=== PATIENT | female | born 1985 | race Caucasian/White ===

== ENCOUNTER 2017-01-09 22:15 | Emergency (ER) | payer SELFPAY ==
[2017-01-09] MEDS ORDERED: KETOROLAC TROMETHAMINE 60 MG/2 ML VIAL IM ONE (22:47)
[2017-01-09] MEDS ORDERED: ONDANSETRON HCL 4 MG TAB.RAPDIS ONE (22:54)
[2017-01-09] MEDS ORDERED: ONDANSETRON HCL 4 MG TAB.RAPDIS PO ONE (23:13)
[2017-01-09] MEDS ORDERED: LEVOFLOXACIN 500 MG TABLET PO ONE (23:30)
--- NOTE | 2017-01-09 23:36 | ED Physician Documentation ---
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 - HPI Stated Complaint: rt flank pain Chief Complaint: Flank Pain Additional Information: started yesterday, worse today Onset: days ago (1) Duration: sudden-onset Timing: still present Context: denies: out of country travel, bad food, recent trauma Severity: moderate Quality: sharp Front/Back of Body, Lg (Color): 1 - pain 2 - pain Associated Symptoms: nausea Exacerbated by: nothing Relieved by: nothing Further Comments: no - ROS CONST: no problems GI/: none CVS/RESP: none EYES/ENT: none MS/SKIN/LYMPH: none NEURO/PSYCH: none - SOCIAL HX Smoking History: cigarettes Alcohol Use: none Drug Use: none - FAMILY HX Family History: no significant history - PAST HX Past History: none Ischemic Bowel Risk Factors: none Other History: none Surgeries/Procedures: none Immunizations: referred to PCP Medications: none Allergies: NKDA - VITAL SIGNS Vital Signs: Vital Signs Temp Pulse Resp BP Pulse Ox 97.6 F 67 16 134/87 100 01/09/17 22:15 01/09/17 22:15 01/09/17 22:15 01/09/17 22:15 01/09/17 22:15 - REVIEWED ASSESSMENTS Nursing Assessment Reviewed: Yes Vitals Reviewed: Yes Progress - Results/Orders Results/Orders: ua ordered - Progress Progress: pt. given 500 mg Levaquin p.o., Toradol 60 mg IM and 4 mg Zofran p.o. in er with significant improvement Critical Care Note - Critical Care Note Total Time (mins): 0 ED Results Lab/Radiology - Lab Results Lab Results: ua shows uti - Radiology Radiology Impressions: none ordered - Orders Orders: ED Orders Category Date Time Status URINALYSIS Routine Lab 01/09/17 22:47 Ordered Ketorolac Tromethamine [Toradol] Med 01/09/17 22:47 Discontinued 60 mg IM NOW ONE Levofloxacin [Levaquin] Med 01/09/17 23:30 Once 500 mg PO NOW ONE Ondansetron HCl Rapdis [Zofran Odt] Med 01/09/17 22:54 Discontinued 4 mg .ROUTE .STK-MED ONE Ondansetron HCl Rapdis [Zofran Odt] Med 01/09/17 23:13 Discontinued 4 mg PO NOW ONE Abdominal Pain Physical Exam - Physical Exam General Appearance: moderate distress EENT: eye inspection normal, ENT inspection normal, pharynx normal, no signs of dehydration, LEYDI, no nystagmus, TM's nml NECK: normal inspection, thyroid normal, supple RESPIRATORY: no resp distress, chest non-tender, breath sounds normal CVS: reg rate & rhythm, heart sounds normal, equal pulses, no murmur, no gallop , PMI nml ABDOMEN: soft, no organomegaly, normal bowel sounds, no abdominal bruit, no distension, tenderness (right lower quadrant) BACK: CVA tenderness (R) SKIN: warm/dry, normal color EXTREMITIES: non-tender, normal range of motion, no evidence of injury, no edema NEURO: oriented X3, CN's nml as tested, motor nml, sensation nml, mood/affect nml, cognition normal Vital Signs: Vital Signs Temp Pulse Resp BP Pulse Ox 97.6 F 67 16 134/87 100 01/09/17 22:15 01/09/17 22:15 01/09/17 22:15 01/09/17 22:15 01/09/17 22:15 Discharge Clincal Impression: Urinary tract infection Qualifiers: Urinary tract infection type: acute cystitis Hematuria presence: with hematuria Qualified Code(s): N30.01 - Acute cystitis with hematuria Home Medications: Ambulatory Orders NK [NK] 01/09/17 Comments: Discharged in stable condition with scripts for Cipro 500 mg p.o. bid #14, Toradol 10 mg 1 p.o. qid prn pain #10 and Zofran 4 mg 1 p.o. qid prn n/v. Condition: Stable Disposition: 01 HOME, SELF-CARE Decision to Admit: NO Decision Time: 23:30
[2017-01-09 23:53] VITALS: BP 130/82
[2017-01-10 05:36] LABS: APPEARANCE,URINE CLOUDY (CLEAR); COLOR,URINE YELLOW (YELLOW); OCCULT BLOOD,URINE 1+ (NEGATIVE); PH URINE 6.5 (5.0 - 8.0); UROBILINOGEN URINE 0.2 Eu (0.2-1.0)
== END 2017-01-09 23:47 | disposition home or self-care (01) ==
LOC: ED 22:15
DX: N30.01 Acute cystitis with hematuria (principal)
CPT/HCPCS: 81002; 87086; 87186; A9270; J1885; 96372; 99283

== ENCOUNTER 2018-10-18 16:38 | Emergency (ER) | payer SELFPAY ==
[2018-10-18] MEDS ORDERED: cefTRIAXone SODIUM 250 MG INJ IM ONE (17:32)
[2018-10-18] MEDS ORDERED: AZITHROMYCIN 1 GM PACKET PO ONE (17:33)
[2018-10-18 18:28] VITALS: BP 152/74
--- NOTE | 2018-11-15 19:55 | ED Physician Documentation ---
Female Urogenital Problems - HPI Stated Complaint: vaginal bleeding/discharge Chief Complaint: Female Urogenital Problems Further Comments: yes (32 year old female patient presents with complaint of needing STD testing. Patient reports increased vaginal bleeding with clots, started her menses 2 days ago.) - Vaginal Bleeding Compared to Menstrual Periods: heavier, passing clots Contraceptive: none - Associated Symptoms Urinary Symptoms: none - ROS CONST: none GI/: denies: nausea, vomiting CVS/RESP: none EYES/ENT: none NEURO/PSYCH: none MS/SKIN/LYMPH: none - PAST HX Past History: none Allergies/Adverse Reactions: Allergies Allergy/AdvReac Type Severity Reaction Status Date / Time No Known Allergies Allergy Verified 10/18/18 17:04 Home Medications: Ambulatory Orders Medication Instructions Recorded NK 01/09/17 - SOCIAL HX Smoking History: cigarettes - FAMILY HX Family History: denies: none - VITAL SIGNS Vital Signs: Vital Signs Temp Pulse Resp BP Pulse Ox 98.6 F 93 H 20 152/74 100 10/18/18 16:41 10/18/18 18:23 10/18/18 18:23 10/18/18 18:23 10/18/18 18:23 - REVIEWED ASSESSMENTS Nursing Assessment Reviewed: Yes Vitals Reviewed: Yes Progress - Progress Progress: Patient treated with azithromycin and Rocephin while in the ER due to unprotected sexual encounters. Swabs sent for STD testing. ED Results Lab/Radiology - Lab Results Lab Results: Lab Results 10/18/18 10/18/18 18:00 18:00 C. trachomatis (SEEMA) Negative (NEGATIVE) Chlamydia/GC Media Type Aptima swab Aptima swab N. gonorrhoeae (SEEMA) Negative (NEGATIVE) - Orders Orders: ED Orders Category Date Time Status CHLAMYDIA & GONORRHOEAE Stat Lab 10/18/18 18:00 Completed Azithromycin [Zithromax] Med 10/18/18 17:33 Discontinued 1 gm PO NOW ONE cefTRIAXone SODIUM [Rocephin] Med 10/18/18 17:32 Discontinued 250 mg IM NOW ONE Female Urogenital Problems - EXAM General Appearance: alert, anxious Respiratory: no resp. distress, breath sounds nml CVS: reg rate & rhythm, heart sounds normal, equal pulses, no murmur, no gallop, PMI nml, no JVD, no friction rub, 24 Abdomen: soft, non-tender, no organomegaly, no distention, nml bowel sounds Pelvic: external exam nml, speculum exam nml, mild (scant). 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
== END 2018-10-18 18:27 | disposition home or self-care (01) ==
LOC: ED 16:38
DX: N92.1 Excessive and frequent menstruation with irregular cycle (principal)
CPT/HCPCS: 87801; 96372; 99283; 99284; J0456; J0696; 87210